=== PATIENT | female | born 2000 | race Two or more races ===

== ENCOUNTER 2021-09-06 14:00 | Emergency (ER) | payer SELFPAY ==
[~2021-09-06] VITALS: Ht 172.7 cm; Wt 97.5 kg
[2021-09-06 17:54] VITALS: BP 105/54
[2021-09-06] MEDS ORDERED: AMOX-277 PO (18:03)
[2021-09-06] MEDS ORDERED: PRED20TA2 PO (18:03)
== END 2021-09-06 18:36 | disposition home or self-care (01) ==
LOC: ER 14:00
DX: J06.9 Acute upper respiratory infection, unspecified (principal); J98.01 Acute bronchospasm
CPT/HCPCS: 71045